=== PATIENT | male | born 1955 ===

== ENCOUNTER 2021-09-01 05:48 | Day surgery (SDC) | payer OTHER ==
[~2021-09-01 05:48] MED LIST: BRILINTA60 MG PO; COZAAR50 MG PO; CRESTOR10 MG PO; GLIMEPIRIDE2 M1 PO; JANUMET 50-1,01 EACH PO; TOPROL XL50 M1 PO
== END 2021-09-01 13:00 | disposition home or self-care (01) ==
LOC: CIR.AMB 05:48
PROVIDERS: ATTEND Orthopaedic Surgery Hand Surgery
DX: M72.0 Palmar fascial fibromatosis [Dupuytren] (principal); I10 Essential (primary) hypertension; Z95.5 Presence of coronary angioplasty implant and graft; E78.5 Hyperlipidemia, unspecified; I25.2 Old myocardial infarction; Z87.891 Personal history of nicotine dependence; M19.90 Unspecified osteoarthritis, unspecified site; Z79.02 Long term (current) use of antithrombotics/antiplatelets